=== PATIENT | female | born 1955 | race Caucasian/White ===

== ENCOUNTER 2022-02-28 10:54 | Day surgery (SDC) | payer MEDICARE, BC ==
[~2022-02-28] VITALS: Ht 167.6 cm; Wt 71.6 kg
[~2022-02-28 10:54] MED LIST: ALEN70 PO; LEVOTHYROXINE PO; PROG100 PO
--- NOTE | 2022-02-28 14:04 | NUR ---
02/28/22 1404 Valentin Clemens 0.15MG EPI ADDED TO 30ML'S OF 0.5% BUPIVACAINE TO ACHIEVE SOLUTION OF 1:200,000 DOSE VERIFIED BY ORSCCORRIE AND [email or web address].
--- NOTE | 2022-02-28 16:03 | NUR ---
02/28/22 1603 SUNNY WANG NO EKG NEEDED AT THIS TIME PER DR. RAY
--- NOTE | 2022-02-28 16:41 | NUR ---
02/28/22 1641 SUNNY WANG 50MCG IV FENTANYL GIVEN NOW
== END 2022-02-28 17:04 | disposition home or self-care (01) ==
LOC: ORSCSDS 10:54
PROVIDERS: Podiatrist Foot & Ankle Surgery
PROC: 0YP90YZ Removal of Other Device from Right Lower Extremity, Open Approach (ICD-10-PCS; principal; 2022-02-28 12:30)
PROC: 0SGK04Z Fusion of Right Tarsometatarsal Joint with Internal Fixation Device, Open Approach (ICD-10-PCS; principal; 2022-02-28 12:30)
PROC: 0SGM04Z Fusion of Right Metatarsal-Phalangeal Joint with Internal Fixation Device, Open Approach (ICD-10-PCS; principal; 2022-02-28 12:30)
DX: M21.611 Bunion of right foot (principal); M21.6X1 Other acquired deformities of right foot; E03.9 Hypothyroidism, unspecified; Z79.899 Other long term (current) drug therapy
CPT/HCPCS: A9270; C1713; C1776; J0171; J0690; J1100; J2405; J2704; J3010; J7120

== ENCOUNTER 2025-01-22 09:41 | Day surgery (SDC) | payer MEDICARE, BC ==
[~2025-01-22] VITALS: Ht 170.2 cm; Wt 73.6 kg
[2025-01-22] VITALS (14 sets, daily range): BP systolic 127–159; BP diastolic 67–92
[~2025-01-22 09:41] MED LIST changes: +CeFAZolin Sodium 2,000 MG in NS 100 ML IV SCH; +Lactated Ringer's 1,000 ML IV SCH; +ZYRTEC10 M1 PO
[2025-01-22] MEDS ORDERED: Bupivacaine 0.5% HCl 5 MG/ML 30MLVIAL ONE (10:14)
--- NOTE | 2025-01-22 10:18 | NUR ---
Ambulatory in Day Surgery. History, Chart, Medications and Allergies reviewed before start of procedure.Lungs clear T/O to Auscultation. Patient confirms NPO status and agrees with scheduled surgery. Pre-Op teaching done. Pt verbalizes understanding.
[2025-01-22] MEDS ORDERED: propofoL 20 ML IV ONE (10:38)
[2025-01-22] MEDS ORDERED: FentaNYL Citrate 50 MCG/ML 5 ML Injection ONE (10:38)
[2025-01-22] MEDS ORDERED: Lidocaine HCl 2% 20 ML MDV ONE (11:07)
[2025-01-22] MEDS ORDERED: Ondansetron HCl 2 MG / ML 2ML Vial ONE (11:07)
[2025-01-22] MEDS ORDERED: Dexamethasone Sod Phos 10 MG/ML 1ML VIAL ONE (11:07)
[2025-01-22] MEDS ORDERED: Ketorolac Tromethamine 30mg Vial ONE (11:07)
[2025-01-22] MEDS ORDERED: Rocuronium Bromide 10 MG/ML 5ML Injection IV ONE (11:07)
[2025-01-22] MEDS ORDERED: HYDROmorphone HCl/Pf 1MG SYR IV PRN ×2 (11:15→13:35)
[2025-01-22] MEDS ORDERED: Lidocaine HCl 1% 5 ML SYR INJ ONE (11:15)
[2025-01-22] MEDS ORDERED: FentaNYL Citrate 50 MCG/ML 2 ML Injection IV PRN ×3 (11:15)
[2025-01-22] MEDS ORDERED: Ondansetron HCl 2 MG / ML 2ML Vial IV PRN ×2 (11:15→13:30)
[2025-01-22] MEDS ORDERED: Neostigmine Methylsulfate 5MG/5ML SYR ONE (13:19)
[2025-01-22] MEDS ORDERED: Glycopyrrolate 0.2 MG/ML 5ML VIAL ONE (13:19)
[2025-01-22] MEDS ORDERED: Ondansetron 4 MG TAB PO PRN (13:30)
[2025-01-22] MEDS ORDERED: Promethazine HCl 25 MG Tab PO PRN (13:30)
[2025-01-22] MEDS ORDERED: Lactated Ringer's 1,000 ML IV SCH (13:35)
[2025-01-22] MEDS ORDERED: Simethicone 80 MG Chew PO PRN (13:35)
[2025-01-22] MEDS ORDERED: Promethazine HCl 12.5 MG Supp PR PRN (13:35)
[2025-01-22] MEDS ORDERED: Naloxone HCl 0.4MG / ML 1ML Vial IV PRN (13:35)
[2025-01-22] MEDS ORDERED: OxyCODONE 5 mg/Acetamin 325 mg TABLET PO PRN (13:40)
[2025-01-22] MEDS ORDERED: Ketorolac Tromethamine 30mg Vial IV PRN (13:45)
[2025-01-22] MEDS ORDERED: FentaNYL Citrate 50 MCG/ML 2 ML Injection ONE (14:04)
--- NOTE | 2025-01-22 14:33 | NUR ---
pt arrived to room 214 from pacu TRANSFERRED FROM [facility] TO [facility]. ORIENTED TO USE OF CALL LIGHT. LAP INCISIONS TO ABD X5 W/TISS ADHESIVE CDI. SMALL AMOUNT LIGHT RED DRAINAGE NOTED ON LINENS UNDER PT. LCA. HRR. BT HYPO X4. PT RATES PAIN TO ABDOMEN 6/10 AT THIS TIME. VSS.
[2025-01-22] MEDS ORDERED: CeFAZolin Sodium 2,000 MG in NS 100 ML IV SCH (17:00)
--- NOTE | 2025-01-22 17:25 | NUR ---
SUMMARY NO ACUTE CHANGES SINCE ARRIVING TO UNIT FROM PACU. MEDICATED PT PER ORDERS FOR PAIN, PT STATED BROUGHT PAIN DOWN FROM 6 TO 3. CALL LIGHT IN REACH.
[2025-01-23 05:22] VITALS: BP 102/59
[2025-01-23] MEDS ORDERED: Levothyroxine Sodium 0.075 MG Tab PO SCH (06:00)
--- NOTE | 2025-01-23 06:04 | NUR ---
SHIFT SUMMARY JEFFREY WAS ALERT AND FULLY ORIENTED ON ASSESSMENT. LAP SITES C/D/I. PAIN WELL MANAGED. PT AMBULATING IND, AND VOIDING APPROPRIATELY. LITTLE TO NO VAGINAL BLEEDING. CIRCULATION AND SENSATION INTACT T/O EXTS. NO ACUTE EVENTS TONIGHT. NO NOTED CHANGES TO PT CONDITION.
[2025-01-23 06:18] LABS: BASOPHILS ABSOLUTE AUTO 0.03 K/mm3 (0.00-0.23); BASOPHILS PERCENT AUTO 0 % (0-2); EOSINOPHILS ABSOLUTE AUTO 0.02 K/mm3 (0.00-0.68); EOSINOPHILS PERCENT AUTO 0 % (0-6); Hematocrit 34.5 % (33.0-51.0); IMMATURE GRAN ABSOLUTE AUTO 0.02 K/mm3 (0.00-0.10); IMMATURE GRAN PERCENT AUTO 0 % (0-1); LYMPHOCYTES PERCENT AUTO 22 % (21-46); MONOCYTES ABSOLUTE AUTO 0.65 K/mm3 (0.16-1.47); MONOCYTES PERCENT AUTO 7 % (4-13); Mean Corpuscular HGB Conc 34.8 g/dL (31.5-36.5); Mean Corpuscular Volume 89 fL (80-100); Mean Platelet Volume 9.8 fL (9.1-12.4); NEUTROPHILS ABSOLUTE AUTO 6.31 K/mm3 (1.96-9.15); NEUTROPHILS PERCENT AUTO 70 % (41-73); Platelet Count 212 K/mm3 (150-400); RDW Coefficient Variation 12.7 % (11.7-14.2); RDW Standard Deviation 41.7 fL (35.1-46.3); Red Blood Cell Count 3.87 M/mm3 (3.80-5.20); White Blood Cell Count 9.03 K/mm3 (4.00-11.30)
[2025-01-23 07:33] VITALS: BP 114/58
[2025-01-23] MEDS ORDERED: Loratadine 10 MG Tab PO SCH (09:00)
[2025-01-23] MEDS ORDERED: Percocet 5-3251 EACH PO (10:13)
[2025-01-23] MEDS ORDERED: PROM25 PO (10:20)
[2025-01-23] MEDS ORDERED: SIME80CH PO (10:21)
--- NOTE | 2025-01-23 10:36 | NUR ---
DISCHARGE PT EDUCATED ON AND RECEIVED PRINTED DISCHARGE INSTRUCTIONS AND VERBALIZED AN UNDERSTANDING. PT REPORTS FILLING RX'S PRIOR TO SURGERY. IV DC'D. PT GATHERED ALL PERSONAL BELONGINGS AND TO TAKE PT HOME. PT LAP SITES TO ABD X3 WITH STERI STRIPS ARE CDI, ABD BINDER IN PLACE, LOKESH REG DIET, INDEP TO RESTROOM AND VOIDING SPONTANEOUSLY. PT REPORTS PAIN CONTROLLED AND MINIMAL VAG BLEEDING.
== END 2025-01-23 10:42 | disposition home or self-care (01) ==
LOC: SURS 09:41 → ORSCMMR 09:41 → ORD 11:30 → ORSCMMR 11:30 → SURS 14:07 → ORSCMMR 01-23 10:42
PROVIDERS: Obstetrics & Gynecology
PROC: 0UT9FZZ Resection of Uterus, Via Natural or Artificial Opening With Percutaneous Endoscopic Assistance (ICD-10-PCS; principal; 2025-01-22 11:30)
PROC: 0UT2FZZ Resection of Bilateral Ovaries, Via Natural or Artificial Opening With Percutaneous Endoscopic Assistance (ICD-10-PCS; principal; 2025-01-22 11:30)
PROC: 0DNU4ZZ Release Omentum, Percutaneous Endoscopic Approach (ICD-10-PCS; principal; 2025-01-22 11:30)
PROC: 0UT7FZZ Resection of Bilateral Fallopian Tubes, Via Natural or Artificial Opening With Percutaneous Endoscopic Assistance (ICD-10-PCS; principal; 2025-01-22 11:30)
DX: N95.0 Postmenopausal bleeding (principal); N85.00 Endometrial hyperplasia, unspecified; N73.6 Female pelvic peritoneal adhesions (postinfective); N80.03 Adenomyosis of the uterus; N83.292 Other ovarian cyst, left side; N83.291 Other ovarian cyst, right side; E03.9 Hypothyroidism, unspecified; Z79.899 Other long term (current) drug therapy
CPT/HCPCS: 36415; 85025; 86850; 86900; 86901; 88307; A9270; J0690; J1100; J1171; J1885; J2405; J2704; J2710; J3010; J7120